=== PATIENT | male | born 1975 | race Caucasian/White ===

== ENCOUNTER 2022-09-06 16:33 | Emergency (ER) | payer SELFPAY ==
[2022-09-06 16:44] VITALS: BP 148/112; PULSE 78; RESP 16; TEMP 36.2; O2SAT 100
--- NOTE | 2022-09-06 17:35 | ED.DENTAL ---
HPI - Dental/Oral General Chief complaint: Dental/Oral Stated complaint: Toothache Source: patient Mode of arrival: ambulatory Limitations: no limitations History of Present Illness HPI Narrative: PATIENT PRESENTS FOR EVALUATION OF LEFT UPPER DENTAL PAIN FOR THE LAST FEW WEEKS. PAIN IS CONSTANT, THROBBING, 8/10 SEVERITY. HE TRIED TAKING TYLENOL AND IBUPROFEN FOR SYMPTOMS WHICH PROVIDE HIM WITH TEMPORARY RELIEF. HE SAW A DENTIST TODAY AND STATES THAT THEY TOLD HIM THAT HE HAD A DENTAL INFECTION BUT WOULD ONLY GIVE HIM A PRESCRIPTION FOR AMOXICILLIN IF HE AGREED TO HAVE $11,000 WORTH OF DENTAL WORK PERFORMED. NO FEVER, CHILLS, NAUSEA, VOMITING, TRISMUS OR PROBLEMS HANDLING SECRETIONS. HE IS AN EVERYDAY SMOKER. Related Data Allergies Allergy/AdvReac Type Severity Reaction Status Date / Time No Known Allergies Allergy Verified 09/06/22 16:48 Review of Systems Review of Systems: CONSTITUTIONAL: DENIES FEVER, CHILLS, OR SWEATS. EYES: DENIES VISUAL CHANGES, REDNESS, OR DISCHARGE. ENT: REPROTS LEFT UPPER DENTAL PAIN. DENIES RHINORRHEA, CONGESTION, SORE THROAT, OR OTALGIA. CARDIOVASCULAR: DENIES CHEST PAIN, PALPITATIONS, OR EDEMA. RESPIRATORY: DENIES COUGH OR DYSPNEA. GASTROINTESTINAL: DENIES ABDOMINAL PAIN, NAUSEA, VOMITING, OR DIARRHEA. GENITOURINARY: DENIES DYSURIA OR HEMATURIA. SKIN: DENIES RASH OR ITCHING. MUSCULOSKELETAL: DENIES BACK PAIN, JOINT PAIN, OR MYALGIA. NEUROLOGIC: DENIES HEADACHE, NUMBNESS, DIZZINESS, OR WEAKNESS. PSYCHIATRIC: DENIES ANXIETY OR DEPRESSION. [facility] Past Medical History Medical History No pertinent past medical history Surgical History Surgical History (Updated 09/06/22 @ 17:36 by NEGAR Grimes, ) No pertinent past surgical history Family History Family History Mother Family history non-contributory Social History Social History Smoking packs per day: 1 Smoking cigarettes per day: 20.0 Smoking status: Current every day smoker Living arrangements: with family Gender identity (if verbalized by the patient): Male Sexual Orientation (if Verbalized by the Patient): Straight or Heterosexual Spiritual care concerns: No Exam Narrative: GENERAL: WELL-APPEARING, WELL-NOURISHED, AND IN NO ACUTE DISTRESS. HEAD: NORMOCEPHALIC, ATRAUMATIC. EYES: PERRLA AND EOMI. ENT: NARES CLEAR, NO RHINORRHEA OR EPISTAXIS. MUCOUS MEMBRANES MOIST. OROPHARYNX WITHOUT TONSILLAR HYPERTROPHY EXUDATE OR OTHER LESIONS. TOOTH #14 IS FRACTURED. NO VIISBLE OR PALPABLE ABSCESS. BILATERAL TMS PEARLY BOYD NONBULGING NECK: SUPPLE. NO ADENOPATHY OR MASSES. NO CAROTID BRUITS OR JVD CHEST: CLEAR TO AUSCULTATION. NO RESPIRATORY DISTRESS. NO WHEEZES RALES OR RHONCHI HEART: REGULAR RATE AND RHYTHM. NO MURMUR HEARD. NORMAL PERIPHERAL PULSES. ABDOMEN: SOFT, NONTENDER, NONDISTENDED, NORMAL ACTIVE BOWEL SOUNDS. EXTREMITIES: NORMAL RANGE OF MOTION. NO EDEMA. SKIN: WARM, DRY, NO RASH. NEURO: NO FOCAL DEFICITS. ALERT AND ORIENTED X3. PSYCH: NORMAL MOOD AND AFFECT. Course Course Emergency Course: THIS IS A 47-YEAR-OLD MALE WHO PRESENTED FOR EVALUATION OF LEFT UPPER DENTAL PAIN. HE HAS A DENTAL FRACTURE. HE STATES HE WAS TOLD HE HAD A DENTAL INFECTION WHEN HE WAS SEEN TODAY. WILL DC WITH AMOXCILLIN AND CHLORHEXIDINE. ADVISED ON SMOKING CESSATION. INCREASE HYDRATION. GO TO ER FOR WORSENING SYMPTOMS. PT IN AGREEMENT WITH PLAN OF CARE. Level of Care: Express Care Visit Vital Signs Vital signs: Vital Signs Temperature 36.2 C L 09/06/22 16:44 Pulse Rate 78 09/06/22 16:44 Respiratory Rate 16 09/06/22 16:44 Blood Pressure 148/112 H 09/06/22 16:44 Pulse Oximetry 100 09/06/22 16:44 Oxygen Delivery Room Air 09/06/22 16:44 Temperature 36.2 C L 09/06/22 16:44 Pulse Rate 78 09/06/22 16:44 Respiratory R
== END 2022-09-06 17:37 | disposition home or self-care (01) ==
PROVIDERS: Emergency Provider Nurse Practitioner; PCP Emergency Medicine
DX: S02.5XXA Fracture of tooth (traumatic), initial encounter for closed fracture (principal); X58.XXXA Exposure to other specified factors, initial encounter; F17.210 Nicotine dependence, cigarettes, uncomplicated
CPT/HCPCS: 99213; G0463